=== PATIENT | female | born 1975 | race Caucasian/White ===

== ENCOUNTER → 2017-03-29 | Emergency (ER) | payer OTHER ==
[~2017-03-29] VITALS: Ht 170.2 cm; Wt 74.8 kg
[~2017-03-29] MED LIST: ALBUTEROL2.5 MG/3 M IH; AMOX1TAB12; AMOX1TAB5 PO; CIPRO500 MG; CLARINEX5 MG/TAB PO; DOLOGESIC 500-1 EACH PO; FAMOTIDINE20 MG; GILPHEX TR TAB1 EACH PO; KAOPECTATE262 MG/15 PO; NASONEX17 GM NS; PEPCID40 MG PO; PRENATAL1 TAB PO; ZITHROMAX Z PACK PO; ZOFRAN4 MG PO; ZYNCOF 20-400120 ML PO
== END | disposition home or self-care (01) ==
LOC: ER 02:06
DX: J06.9 Acute upper respiratory infection, unspecified (principal)

== ENCOUNTER 2017-10-29 21:37 | Inpatient (IN) | payer OTHER ==
[~2017-10-29] VITALS: Ht 154.9 cm; Wt 68.0 kg
[2017-10-29] MEDS ORDERED: HYOSCYAMINE0.125 M1 (22:02)
[2017-11-01] MEDS ORDERED: LEVAQUIN750 MG PO (13:36)
[2017-11-01] MEDS ORDERED: TUSSIN DM COUG237 ML PO (13:37)
[2017-11-01] MEDS ORDERED: ZYRTEC10 MG PO (13:38)
== END 2017-11-01 15:48 | disposition home or self-care (01) | DRG 689 ==
LOC: ER 21:37 → SEC-K 10-30 07:29 → MEDI 10-30 07:29
PROC: BW40ZZZ Ultrasonography of Abdomen (ICD-10-PCS; principal; 2017-10-30)
PROC: BT43ZZZ Ultrasonography of Bilateral Kidneys (ICD-10-PCS; 2017-10-30)
PROC: BW25Y0Z Computerized Tomography (CT Scan) of Chest, Abdomen and Pelvis using Other Contrast, Unenhanced and Enhanced (ICD-10-PCS; 2017-10-30)
DX: N10 Acute pyelonephritis (principal); A41.9 Sepsis, unspecified organism; K52.89 Other specified noninfective gastroenteritis and colitis

== ENCOUNTER 2020-10-05 14:44 | Emergency (ER) | payer OTHER ==
[~2020-10-05] VITALS: Ht 170.2 cm; Wt 71.2 kg
[~2020-10-05 14:44] MED LIST changes: +HYOSCYAMINE0.125 M1; +LEVAQUIN750 MG PO; +TUSSIN DM COUG237 ML PO; +ZYRTEC10 MG PO
[2020-10-05] MEDS ORDERED: DICLOFENAC SODI75 MG PO (20:26)
== END 2020-10-05 20:46 | disposition home or self-care (01) ==
LOC: ER 14:44
DX: R10.32 Left lower quadrant pain (principal)